=== PATIENT | male | born 1965 | race Caucasian/White ===

== ENCOUNTER 2019-04-18 14:06 | Emergency (ER) | payer OTHER, SELFPAY | END 2019-04-18 14:45 | disposition home or self-care (01) | LOC: SCSER 14:06 | DX: J01.90 Acute sinusitis, unspecified (principal); E78.5 Hyperlipidemia, unspecified; I48.91 Unspecified atrial fibrillation; I10 Essential (primary) hypertension; F32.9 Major depressive disorder, single episode, unspecified; F41.9 Anxiety disorder, unspecified | CPT/HCPCS: 99283 ==

== ENCOUNTER 2020-06-19 10:58 | Emergency (ER) | payer SELFPAY ==
[2020-06-19] MEDS ORDERED: Iopamidol-370 76% 500 ML 1 ML ONE (11:10)
[2020-06-19] MEDS ORDERED: Ondansetron PF 4 MG/2 ML Vial ONE (11:14)
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
--- NOTE | 2020-06-21 15:23 | EKG ---
Test Reason : Blood Pressure : / mmHG Vent. Rate : 067 BPM Atrial Rate : 067 BPM P-R Int : 168 ms QRS Dur : 086 ms QT Int : 412 ms P-R-T Axes : 046 036 028 degrees QTc Int : 435 ms Normal sinus rhythm Normal ECG Confirmed by JUAN LÓPEZ, NIKO ([id number]), editorial cartoonist ROSELIA SAMSON ([id number]) on 06/21/2020 3:22:58 PM Referred By: Confirmed By:NIKO MARTINEZ MD
== END 2020-06-19 12:41 | disposition home or self-care (01) ==
LOC: ERS 10:58
DX: S16.1XXA Strain of muscle, fascia and tendon at neck level, initial encounter (principal); S90.01XA Contusion of right ankle, initial encounter; S20.219A Contusion of unspecified front wall of thorax, initial encounter; Z79.899 Other long term (current) drug therapy; V49.60XA Unspecified car occupant injured in collision with unspecified motor vehicles in traffic accident, initial encounter
CPT/HCPCS: 70450; 71260; 72125; 74177; 93005; 96374; J2405; Q9967